=== PATIENT | female | born 1995 | race Caucasian/White ===

== ENCOUNTER 2016-07-13 10:54 | Emergency (ER) | payer OTHER ==
[2016-07-13] MEDS ORDERED: SODIUM CHLORIDE 0.9% 1,000 ML ONE (12:40)
[2016-07-13] MEDS ORDERED: ONDANSETRON 4 MG/2ML 2 ML VIAL ONE ×2 (12:40→14:18)
[2016-07-13] MEDS ORDERED: FAMOTIDINE 10 MG/ML 2ML VIAL ONE (12:41)
[2016-07-13 12:57] LABS: ABSOLUTE NEUTROPHIL COUNT 9.6 K/mm3 (1.8-7.7); BASO % 0.2 % (0.2-1.0); EOS # 0.1 (0.0-0.5); EOS % 1.1 % (0.9-2.9); HEMATOCRIT 42.8 % (37.0-47.0); HEMOGLOBIN 13.7 gm/l (12.0-16.0); IMM NEUT% 0.3 % (0-1); LYMPH % 16.1 % (15-45); MEAN CELL VOLUME 87.9 fl (81.0-99.0); MEAN CORPUSCULAR HEMOGLOBIN 28.1 pg (27.0-31.0); MEAN PLATELET VOLUME 9.5 fl (7.4-10.4); MONO # 0.7 (0.0-0.8); MONO % 5.5 % (4-12); NEUT % 76.8 % (43-75); PLATELET COUNT 288 K/mm3 (130-400); RED CELL DISTRIBUTION WIDTH 12.9 % (11.5-14.5)
[2016-07-13 13:01] LABS: ALB/GLOB RATIO 1.3 (>1.0); ALBUMIN 4.2 gm/dL (3.5-5.7); CALCIUM 9.5 mg/dL (8.6-10.3)
[2016-07-13 13:02] LABS: C-REACTIVE PROTEIN 3.5 mg/dl (<1.0)
[2016-07-13 13:38] LABS: URINE BILIRUBIN NEGATIVE (NEGATIVE); URINE BLOOD NEGATIVE (NEGATIVE); URINE GLUCOSE (UA) NEGATIVE (NEGATIVE); URINE LEUKOCYTE ESTERASE NEGATIVE (NEGATIVE); URINE NITRITE NEGATIVE (NEGATIVE); URINE PROTEIN NEGATIVE (NEGATIVE); URINE UROBILINOGEN NORMAL (0-1 mg/dl)
[2016-07-13 13:44] LABS: URINE APPEARANCE HAZY; URINE COLOR DARK YELLOW
[2016-07-13 13:53] LABS: AMPHETAMINES/METHAMPHETAMINES NEGATIVE (NEGATIVE); COCAINE NEGATIVE (NEGATIVE); MARIJUANA POSITIVE (NEGATIVE); METHADONE NEGATIVE (NEGATIVE); OPIATES POSITIVE (NEGATIVE); TRICYCLIC ANTIDEPRESSANTS NEGATIVE (NEGATIVE)
--- NOTE | 2016-07-13 13:55 | RAD ---
ABDOMEN 2 VIEWS W PA CHEST HISTORY: Cough, fever. Abdominal pain. COMPARISONS: 06/22/2010 FINDINGS: PA of the chest with upright and supine views of the abdomen. Lungs are clear without effusion or pneumothorax. Cardiomediastinal silhouette is unremarkable. Bowel gas pattern is nonspecific and nonobstructive. There is no plain film evidence of intraperitoneal free air. Moderate stool is noted within the ascending colon. Mild stool is noted within the descending colon and rectosigmoid region. Osseous structures are intact. IMPRESSION: Unremarkable examination.
== END 2016-07-13 14:43 | disposition home or self-care (01) ==
LOC: ED 10:54
DX: R10.13 Epigastric pain (principal); J40 Bronchitis, not specified as acute or chronic
CPT/HCPCS: 83690; 84703; 86141; 85025; 80305; 80053; 81003; 74022; 87804; 96375; 96376; 99284 ×2; 96374; 96361 ×2; 93005; J2405 ×2; J7030